=== PATIENT | male | born 1995 ===

== ENCOUNTER 2023-10-05 07:42 | Emergency (ER) | payer OTHER ==
[~2023-10-05] VITALS: Ht 167.6 cm; Wt 75.0 kg
[2023-10-05 10:55] VITALS: BP 115/82; PULSE 76; TEMP 97.9
== END 2023-10-05 10:55 | disposition home or self-care (01) ==
LOC: COL.ER 07:42
DX: J02.9 Acute pharyngitis, unspecified (principal)